=== PATIENT | female | born 1960 | race Caucasian/White ===

== ENCOUNTER → 2016-10-06 | Outpatient (CLI) | payer BC ==
[~2016-10-06] MED LIST: AC325T PO; AML5T PO; ASPI-586 PO; ENXP100I SC; METO-274 PO; METO100T2 PO; WRF2.5T PO
--- NOTE | 2016-10-06 15:29 | Diagnostic Imaging Report ---
PROCEDURE: CT chest without contrast. TECHNIQUE: Multiple contiguous axial images were obtained through the chest without the use of intravenous contrast. INDICATION: Patient reports mass posteriorly in the midthoracic region on the right. FINDINGS: BB is placed over the area of concern posteriorly on the right. There is a lipoma deep to the latissimus muscle along the chest wall at this level. This has a homogeneous appearance with no evidence of invasion. The surrounding muscles appear normal. The lungs are well aerated. No infiltrates or masses. No evidence of pleural effusion or pneumothorax. There is calcification of the coronary arteries. The adrenal glands are not enlarged. There is noted a nonobstructing calculus in the left renal calyx. IMPRESSION: 1. Finding consistent with lipoma along the posterior chest wall on the right correlating with the palpable area. 2. Rather dense coronary artery calcification. Dictated by: Dictated on workstation # [id number]
== END ==
LOC: RAD 13:48
PROVIDERS: ATTEND Family Medicine
DX: R29.898 Other symptoms and signs involving the musculoskeletal system (principal)
CPT/HCPCS: 71250

== ENCOUNTER → 2016-10-26 | Day surgery (SDC) | payer BC ==
[~2016-10-26] MED LIST changes: +ATOR10TA PO; +CYAN10006 PO; +MULT-890 PO
--- OUTSIDE RECORDS SUMMARY | 2016-10-26 06:48 | XMS REPORT | Continuity of Care Document ---
Author Author [facility] Address Unknown Phone Unavailable Allergies Active Description Code Type Severity Reaction Onset Reported/Identified Relationship to Patient Clinical Status Yes adhesive [id number] Drug Allergy Mild RASH 12/08/2014 Medications Problems Date Dx Coded Attending Type Code Diagnosis Diagnosed By 12/08/2014 Quentin RUIZ, Saurabh Barrera Ot 786.50 12/09/2014 MAURO RUIZ, THONY Castillo Ot 276.51 DEHYDRATION 12/09/2014 MAURO RUIZ, THONY Castillo Ot 401.9 HYPERTENSION NOS 12/09/2014 MAURO RUIZ, THONY Castillo Ot 414.00 CORON ATHEROSCLER NOS TYPE VESSEL, NATIV 12/09/2014 MAURO RUIZ, THONY Castillo Ot 415.19 OTH PULMON EMBOLISM/INFARCT 12/09/2014 MAURO RUIZ, THONY Castillo Ot 787.01 NAUSEA WITH VOMITING 12/09/2014 MAURO RUIZ, THONY Castillo Ot V15.82 HISTORY OF TOBACCO USE 12/09/2014 MAURO RUIZ, THONY Castillo Ot V45.82 PERCUTANEOUS TRANSLUM CORON ANGIOPLASTY 12/24/2014 Quentin RUIZ, Saurabh Barrera Ot 415.19 12/24/2014 Quentin RUIZ, Saurabh Barrera Ot V58.61 12/24/2014 Quentin RUIZ, Saurabh Barrera Ot V58.83 12/27/2014 Quentin RUIZ, Saurabh Barrera Ot 415.19 12/27/2014 Quentin RUIZ, Saurabh Barrera Ot V58.61 12/27/2014 Quentin RUIZ, Saurabh Barrera Ot V58.83 04/05/2015 Ot H10.33 UNSPECIFIED ACUTE CONJUNCTIVITIS, BILATE 08/05/2015 Ot M51.34 08/05/2015 Ot M51.36 08/05/2015 Ot S29.9XXA 08/05/2015 Ot S39.92XA 08/05/2015 Ot X58.XXXA 08/08/2015 Jovanna RUIZ, Adriel Norman Ot M25.78 08/08/2015 Jovanna RUIZ, Adriel Norman Ot M54.2 08/16/2015 Quentin RUIZ, Saurabh Barrera Ot 786.50 08/16/2015 Quentin RUIZ, Saurabh Barrera Ot 415.19 08/16/2015 Quentin RUIZ, Saurabh Barrera Ot V58.61 08/16/2015 Quentin RUIZ, Saurabh Barrera Ot V58.83 08/16/2015 Quentin RUIZ, Saurabh Barrera Ot 415.19 08/16/2015 Quentin RUIZ, Saurabh Barrera Ot V58.61 08/16/2015 Quentin RUIZ, Saurabh Barrera Ot V58.83 08/16/2015 Jovanna RUIZ, Adriel Norman Ot M25.78 08/16/2015 Jovanna RUIZ, Adriel Norman Ot M54.2 08/16/2015 Ot M51.34 08/16/2015 Ot M51.36 08/16/2015 Ot S29.9XXA 08/16/2015 Ot S39.92XA 08/16/2015 Ot X58.XXXA 08/16/2015 Jovanna RUIZ, Adriel Norman Ot M25.78 08/16/2015 Jovanna RUIZ, Adriel Norman Ot M54.2 10/06/2016 Quentin RUIZ, Saurabh Barrera Ot 786.50 CHEST PAIN NOS 10/06/2016 Quentin RUIZ, Saurabh Barrera Ot 415.19 OTH PULMON EMBOLISM/INFARCT 10/06/2016 Quentin RUIZ, Saurabh Barrera Ot V58.61 ANTICOAGULANTS,LT,CURRENT USE 10/06/2016 Saurabh Saavedra MD Ot V58.83 ENCOUNTER FOR THERAPEUTIC DRUG MONITORIN 10/06/2016 Saurabh Saavedra MD Ot 415.19 OTH PULMON EMBOLISM/INFARCT 10/06/2016 Saurabh Saavedra MD Ot V58.61 ANTICOAGULANTS,LT,CURRENT USE 10/06/2016 Saurabh Saavedra MD Ot V58.83 ENCOUNTER FOR THERAPEUTIC DRUG MONITORIN 10/06/2016 Ot M51.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 Visit Date/Time Discharge Status Pt. Type Provider Facility Loc./Unit Complaint [id number] 12/13/2014 07:23:00 2014 23:59:59 CLS Outpatient Quentin RUIZ, [facility] LAB [id number] 12/11/2014 10:12:00 2014 23:59:59 CLS Outpatient Quentin RUIZ, [facility] LAB [id number] 12/08/2014 19:58:00 2014 12:40:00 DIS Inpatient MAURO RUIZ, [facility] MED/SURG PE [id number] 07/11/2013 10:37:00 2013 23:59:59 CLS Outpatient Quentin RUIZ, [facility] RAD [id number] 10/26/2016 08:15:00 PEN Preadmit JANNIE RUIZ, [facility] ASC EXCISION OF LIPOMA ON BACK [id number] 10/26/2016 06:43:00 ACT Outpatient JANNIE RUIZ, [facility] ASC [id number] 10/06/2016 13:48:00 ACT Outpatient Quentin RUIZ, [facility] RAD OTHER SIGNS AND SYMPTOMS INVOLV THE MUSCULOSKELATA [id number] 08/01/2015 16:10:00 ACT Outpatient Jovanna RUIZ , Adriel Norman [facility] RAD WORK COMP [id number] 07/18/2015 12:04:00 Document Registration [id number] 04/06/2015 14:44:00 Document Registration
== END | disposition home or self-care (01) ==
LOC: ASC 06:43
PROVIDERS: ATTEND Surgery
DX: D17.79 Benign lipomatous neoplasm of other sites (principal); I25.10 Atherosclerotic heart disease of native coronary artery without angina pectoris; I10 Essential (primary) hypertension; K21.9 Gastro-esophageal reflux disease without esophagitis; Z79.82 Long term (current) use of aspirin

== ENCOUNTER 2016-10-28 08:33 | Day surgery (SDC) | payer BC ==
[~2016-10-28] VITALS: Ht 162.6 cm; Wt 83.6 kg
[~2016-10-28 08:33] MED LIST changes: +ACETAMINOPHEN 500 MG TAB (TYLENOL) PO SCH; -ATOR10TA PO; -CYAN10006 PO; +LACTATED RINGERS 1,000 ML IV SCH; -MULT-890 PO; +SODIUM CHLORIDE FLUSH 3 ML SYR IV PRN; +oxyCODONE IMMEDIATE RELEASE 5 MG (OXYIR) TAB PO SCH
--- OUTSIDE RECORDS SUMMARY | 2016-10-28 08:37 | XMS REPORT | Summary of Care ---
Author Author Matt Resendez M.D. Organization Unknown Address Unknown Phone Unavailable Care Team Providers Care Vehicle [employer] Converter Name Role Phone Matt Resendez M.D. Unavailable Unavailable Nu Alberts M.D. Unavailable Unavailable Saurabh Middleton Unavailable Unavailable Unavailable Unavailable Functional Status Name Dates Details Functional status health issues are not documented Status: Name Dates Details Cognitive status health issues are not documented Status: Problems Name Dates Details Bright Red Blood Per Rectum Status: Active Hematochezia (578.1, K92.1) Status: Active Esophageal reflux (530.81, K21.9) Status: Active Hyperlipidemia (272.4, E78.5) Status: Active Chronic pain (338.29, G89.29) Status: Active Coronary artery disease (414.00, I25.10) Status: Active Status post coronary artery stent placement (V45.82, Z95.5) Status: Active Coronary artery disease due to lipid rich plaque (414.00, I25.10) Status: Active Medications Name Dates Details Aspirin 81 MG TABS TAKE 1 TABLET DAILY. Refills: 0 Start 01-Mar-2008 Active Metoprolol Succinate ER 100 MG Oral Tablet Extended Release 24 Hour TAKE 1 TABLET ONCE DAILY. Refills: 0 Start 01-Mar-2008 Active Fish Oil 1000 MG Oral Capsule TID Quantity: 30 Refills: 0 Nu Alberts M.D. Start 06-Jun-2010 Active Allergies and Adverse Reactions Name Dates Details No Known Drug Allergies (Allergy) Status: Active Procedures Procedure Dates Details History of Cath Stent Placement History of Tonsillectomy History of Hysterectomy History of Complete Colonoscopy Completed: Cardiology Precert (within facility) Ordered: 07-Oct-2016 Immunization Name Dates Details Immunizations not documented Family History Name Dates Details Family history of Cancer Status: Active Family history of Heart Disease (V17.49) Status: Active Family history of Hypertension (V17.49) Status: Active Name Dates Details Family history of Heart Disease (V17.49) Status: Active Social History Name Dates Details - Status: Name Dates Details Former smoker Vital Signs Date Test Result Details 06-Oct-2016 15:35 BP Systolic 132 mm[Hg] Status: Comments: Location: ; Position: BP Diastolic 88 mm[Hg] Status: Comments: Location: ; Position: Heart Rate 64 /min Status: Comments: Location: ; Height 64 in Status: Weight 185 lb Status: Body Mass Index Calculated 31.76 kg/m2 Status: Body Surface Area Calculated 1.89 m2 Status: Results Date Description Value Details Results not documented Plan of Care Name Dates Details Planned Observations Planned Goals not documented Planned Encounters Appointment; Provider: Schedule Radiology On 26-Oct-2016 12:00 Appointment; Provider: Schedule Radiology On 19-Oct-2016 08:00 Instructions Name Dates Details Instructions not documented Encounters Appointment; Matt Resendez M.D. Encounter Diagnosis: Problem not documented On 06-Oct-2016 15:45
[2016-10-28 08:46] VITALS: BP 151/91
[2016-10-28] MEDS ORDERED: ATOR10TA PO (09:04)
[2016-10-28] MEDS ORDERED: CYAN10006 PO (09:04)
[2016-10-28] MEDS ORDERED: MULT-890 PO (09:04)
[2016-10-28] MEDS ORDERED: LIDOCAINE/EPINEPHRINE 1%-1:100,000 (XYLOCAINE) 20ML VIAL ONE (09:26)
[2016-10-28] MEDS ORDERED: ALFENTANIL 500 MCG/ML (ALFENTA) 5 ML AMP IV ONE (11:06)
[2016-10-28] MEDS ORDERED: MIDAZOLAM 2 MG/2 ML (VERSED) VIAL ONE (11:06)
[2016-10-28] MEDS ORDERED: PROPOFOL 20 ML IV ONE (11:07)
[2016-10-28] MEDS ORDERED: ROPIVACAINE 0.2% 100 ML ONE (11:24)
[2016-10-28] MEDS ORDERED: SUCCINYLCHOLINE 20 MG/ML 10 ML VIAL ONE (11:49)
[2016-10-28] MEDS ORDERED: ePHEDrine SULFATE 50 MG/ML 1 ML AMP ONE (12:03)
[2016-10-28] MEDS ORDERED: BUPIVACAINE/EPINEPHRINE 0.25%-1:200,000 (MARCAINE) 30 ML VIAL INJ ONE (12:04)
[2016-10-28] MEDS ORDERED: ONDANSETRON 2 MG/ML (Z0FRAN) 2 ML VIAL ONE (12:12)
[2016-10-28] MEDS ORDERED: diphenhydrAMINE 50 MG/ML INJ (BENADRYL) ONE (12:13)
[2016-10-28] MEDS ORDERED: KETOROLAC 60 MG/2 ML (TORADOL) VIAL IM ONE (13:02)
--- NOTE | 2016-10-28 13:49 | OPERATIVE REPORT ---
DATE OF OPERATION: 10/28/2016 PRE-OPERATIVE DIAGNOSIS: A 22-cm subfascial soft tissue mass, right posterolateral chest. POST-OPERATIVE DIAGNOSIS: A 22-cm subfascial soft tissue mass, right posterolateral chest. OPERATIVE PROCEDURE: 1. Subfascial excision 22 cm soft tissue mass, right posterolateral chest. 2. Insertion of ON-Q pump SURGEON: Delfin Rivero MD STEVEDORING SUPERVISOR: Gracy Waterman RN, CSFA ANESTHESIA: General orotracheal POSITION: Left lateral decubitus on beanbag PREP: Chlorhexidine ESTIMATED BLOOD LOSS: 25 mL FINDINGS: Well encapsulated, fatty soft tissue mass measuring 22 cm deep to the latissimus dorsi right posterolateral chest. There was no encroachment on the chest wall or latissimus dorsi. INDICATIONS: This patient presented with enlarging symptomatic soft tissue mass of the right posterolateral chest wall. On CT scan this appeared to be a fatty mass, which was deep to the latissimus dorsi. There were no invasive characteristics. I discussed the case with surgical oncologist, Dr. Johnny Calix at [facility]. He felt that if this were a liposarcoma that radical excision was not feasible in that location due to the high morbidity. He recommended simple excision, but to also send the tissue fresh for an oncogenetic profile, as well as pathology. Informed consent for the procedure was discussed with the patient who understood and wished to proceed. DESCRIPTION OF PROCEDURE: Following satisfactory induction of anesthesia, the patient as positioned, prepped and draped in sterile fashion. Local anesthetic of 0.25% Marcaine with epinephrine was infiltrated at planned incision site. A skin crease incision was made overlying the mid portion of the mass. This was deepened to the latissimus dorsi. Additional subcutaneous dissection of the skin was performed to allow better exposure. The latissimus dorsi was incised obliquely along its fibers and revealing the fatty soft tissue mass with the above findings. Using carefully blunt and sharp dissection the encapsulated mass was circumferentially dissected free of the surrounding tissues. Individual vascular attachments were clamped, divided and sutured ligated, or ligated with 3-0 Vicryl. The mass was removed and submitted fresh to pathology as previously requested for the above studies. With good hemostasis being noted, closure was accomplished as follows. The site was irrigated with saline, which was evacuated. An ON-Q pain pump catheter was then inserted percutaneously by a separate incision caudal to the mid portion of the incision and directed into the space between the latissimus dorsi and chest wall. The latissimus dorsi muscle was reapproximated with continuous 3-0 Vicryl suture . The subcutaneous tissues were reapproximated with simple interrupted 3-0 Vicryl sutures. The skin closed with continuous subcuticular suture of 4-0 Monocryl and Dermabond dressing. Additional Dermabond was applied at the ON-Q pump catheter insertion site. The catheter was looped on itself and attached to the skin with Steri-Strips. A Tegaderm dressing was placed over the ON-Q catheter site. The patient tolerated the procedure well and transferred to recovery in stable condition. Final instrument, needle and sponge counts correct.
[2016-10-28 13:56] VITALS: BP 154/83
[2016-10-28] MEDS ORDERED: HYDROcodone/APAP 5 MG/325 MG (NORCO) TAB PO PRN (14:10)
[2016-10-28 14:17] VITALS: BP 137/79
[2016-10-28 14:39] VITALS: BP 148/84
[2016-10-28 15:00] VITALS: BP 146/78
== END 2016-10-28 15:12 | disposition home or self-care (01) ==
LOC: ASC 08:33
PROVIDERS: ATTEND Surgery
DX: D17.79 Benign lipomatous neoplasm of other sites (principal); I25.10 Atherosclerotic heart disease of native coronary artery without angina pectoris; I10 Essential (primary) hypertension; K21.0 Gastro-esophageal reflux disease with esophagitis; E66.9 Obesity, unspecified; Z68.31 Body mass index [BMI] 31.0-31.9, adult; Z79.82 Long term (current) use of aspirin; Z95.5 Presence of coronary angioplasty implant and graft; Z87.891 Personal history of nicotine dependence
CPT/HCPCS: 21554; A4649; J0330; J1200; J1885; J2250; J2405; J2795; J7120